=== PATIENT | male | born 1960 | race Two or more races ===

== ENCOUNTER 2019-07-06 20:55 | Emergency (ER) | payer SELFPAY ==
[~2019-07-06] VITALS: Ht 172.7 cm; Wt 72.6 kg
[2019-07-06 21:00] VITALS: BP 129/68
[2019-07-06] MEDS ORDERED: Ipratropium 0.02% Inh Soln 2.5ml UD HHN ONE (21:00)
[2019-07-06] MEDS ORDERED: Solu-MEDROL 125mg Inj IVP ONE (21:00)
[2019-07-06] MEDS ORDERED: Albuterol ud Inhalation HHN ONE (21:00)
--- NOTE | 2019-07-06 21:00 | NUR ---
ED Nurse Note: Patient was biba RA [address] c/o rectal bleed since 4pm. Pt stated he has been bleeding and saturated towels. AAO x4, VSS at this time. Patient presented with strong alcoho smell, talkactive.
--- NOTE | 2019-07-06 21:04 | Emergency Room Report ---
History of Present Illness General Chief Complaint: Gastrointestinal Bleed Source: Patient Present Illness HPI This is a 58-year-old male with a history of COPD but continued to smokes a pack a day. Is also oxygen dependent on 2 L nasal cannula all the time. He presents with chief complaint of rectal bleeding. Onset today. Bleeding is profuse and bright red blood. Never had this problem before. He also has shortness of breath. This is a chronic problem. Was just at [facility] yesterday for the same thing. He is using inhaler nebulizer machine at home. Not helping. Worse with smoking. Worse with exertion. Denies any chest pain. Has cough but productive of phlegm which is at baseline. No fever chills but no nausea no vomiting. No diarrhea. Allergies: Coded Allergies: No Known Allergies (Unverified , 07/06/19) Patient History Past Medical History: see triage record, old chart reviewed, COPD Past Surgical History: other Pertinent Family History: none Social History: Reports: smoking, alcohol use Immunizations: other Reviewed Nursing Documentation: PMH: Agreed; PSxH: Agreed Nursing Documentation-PMH Hx COPD: Yes Review of Systems Eye: Denies: eye pain, blurred vision ENT: Denies: ear pain, nose congestion, throat swelling Respiratory: Reports: cough, shortness of breath Cardiovascular: Denies: chest pain, palpitations Gastrointestinal: Denies: abdominal pain, diarrhea, nausea, vomiting Musculoskeletal: Denies: back pain, joint pain Skin: Denies: rash Neurological: Denies: headache, numbness Endocrine: Denies: increased thirst, increased urine Hematologic/Lymphatic: Denies: easy bruising All Other Systems: negative except mentioned in HPI Physical Exam Vital Signs Date Time Temp Pulse Resp B/P (MAP) Pulse Ox O2 Delivery O2 Flow Rate FiO2 07/06/19 20:43 98.1 78 16 129/68 (88) 90 Vitals with hypoxia Sp02 EP Interpretation: reviewed, normal General Appearance: well appearing, mild distress, Chronically Ill Head: normocephalic, atraumatic Eyes: bilateral eye PERRL, bilateral eye EOMI ENT: hearing grossly normal, normal pharynx Neck: full range of motion, supple, no meningismus Respiratory: chest non-tender, respiratory distress, decreased breath sounds, accessory muscle use, wheezing Cardiovascular #1: regular rate, rhythm, no murmur Gastrointestinal: normal bowel sounds, non tender, no mass, no organomegaly, no bruit, non-distended Rectal: normal rectal tone, other - Bleeding hemorrhoid. No thrombosis. Musculoskeletal: back normal, gait/station normal, normal range of motion Psychiatric: mood/affect normal Medical Decision Making Diagnostic Impression: Primary Impression: COPD with exacerbation Additional Impressions: Rectal bleeding Mass of right lung Alcohol abuse ER Course This patient presents with rectal bleeding. This is probably from a bleeding hemorrhoid. Hemoglobin stable. He also was wheezing and better after breathing treatment. He has a possible infiltrate versus lung mass on the right hilar area. I ordered a CT scan. Patient said that he is an alcoholic and did not want to stay. He had a friend/family member at bedside. He had a small bottle of vodka which he drank most of it. I explained to the patient that he needs to stay for further work-up but he said he wants to go home. He understand the risk of leaving AGAINST MEDICAL ADVICE. EKG Diagnostic Results Rate: normal Rhythm: NSR ST Segments: no acute changes Rhythm Strip Diag. Results EP Interpretation: yes Rate: 96 Rhythm: NSR, no PVC's, no ectopy Chest X-Ray Diagnostic Results Chest X-Ray Diagnostic Results : Chest X-Ray Ordered: Yes # of Views/Limited/Complete: 1 View Indication: Shortness of Breath EP Interpretation: Yes Interpretation: no effusion, no pneumothorax, other - rt hilar mass vs infitrate Impression: Other - rt hilar infiltrate vs mass Electronically Signed by: Kenyon Zamora MD Last Vital Signs Date Time Temp Pulse Resp B/P (MAP) Pulse Ox O2 Delivery O2 Flow Rate FiO2 07/06/19 20:43 98.1 78 16 129/68 (88) 90 Status: improved Disposition: AGAINST MEDICAL ADVICE Condition: Stable Scripts Levofloxacin* (LEVAQUIN*) 500 Mg Tablet 500 MG ORAL DAILY, #7 TAB Prov: Kenyon Zamora MD 07/06/19 Prednisone* (PREDNISONE*) 50 Mg Tablet 50 MG ORAL DAILY, #5 TAB 0 Refills Prov: Kenyon Zamora MD 07/06/19 Additional Instructions: You are signing AGAINST MEDICAL ADVICE. You may suffer severe consequences and even . Stop smoking. Follow-up with your doctor in 2 to 3 days. You have a possible lung mass on the right lung. You will need to scan to rule out possible cancer. Return if symptoms worsen. Kenyon Zamora MD Jul 06, 2019 21:04
--- NOTE | 2019-07-06 21:15 | NUR ---
ED Nurse Note: blood collected sent down
[2019-07-06] MEDS ORDERED: Azithromycin 250mg tab ORAL ONE (21:30)
[2019-07-06] MEDS ORDERED: cefTRIAXone 1 GM in NS 55 ML IVPB ONE (21:30)
[2019-07-06 21:35] LABS: ANION GAP 10 mmol/L (5-15); BLOOD UREA NITROGEN 8 mg/dL (7-18); CALCIUM 8.3 MG/DL (8.5-10.1); CARBON DIOXIDE 27 MMOL/L (21-32); CHLORIDE 108 MMOL/L (98-107); CREATININE 0.8 MG/DL (0.55-1.30); INR 1.1 (0.9-1.1); POTASSIUM 3.9 MMOL/L (3.5-5.1); SODIUM 145 MMOL/L (136-145)
[2019-07-06 21:40] LABS: ALANINE AMINOTRANSFERASE 84 U/L (12-78); ALBUMIN 3.4 G/DL (3.4-5.0); ALKALINE PHOSPHATASE 82 U/L (46-116); ASPARTATE AMINO TRANSFERASE 130 U/L (15-37); BILIRUBIN,TOTAL 0.9 MG/DL (0.2-1.0)
[2019-07-06 21:42] LABS: BASOPHILS % (AUTO) 2.4 % (0.0-2.0); EOSINOPHILS % (AUTO) 0.9 % (0.0-3.0); HEMATOCRIT 45.2 % (42.0-52.0); HEMOGLOBIN 15.1 G/DL (14.2-18.0); LYMPHOCYTES % (AUTO) 24.4 % (20.0-45.0); MEAN CORPUSCULAR VOLUME 94 FL (80-99); MONOCYTES % (AUTO) 10.3 % (1.0-10.0); PLATELET COUNT 109 K/UL (150-450); RED CELL DISTRIBUTION WIDTH 11.8 % (11.6-14.8); WHITE BLOOD COUNT 6.3 K/UL (4.8-10.8)
[2019-07-06] MEDS ORDERED: Omnipaque-300 100ml vial INJ ONE (22:00)
[2019-07-06 22:05] VITALS: BP 129/68
--- NOTE | 2019-07-06 22:05 | NUR ---
AMA: SEE AMA FORM. Patient was foud drinking Vodka at bed side. As soon as RN asked him to give the bottle, he decided to live AMA. Patient was notifyed by Dr. Zamora, that it is dangerous for him do not get medications. Patient AAO x4, VSS at this time.
[2019-07-06] MEDS ORDERED: LEVAQUIN500 MG ORAL (22:06)
[2019-07-06] MEDS ORDERED: PREDNISONE50 MG ORAL (22:06)
--- NOTE | 2019-07-07 14:48 | Diagnostic Imaging Report ---
Indication: Shortness of breath Technique: One view of the chest Comparison: none Findings: There is infiltrate in the right perihilar region. Left lung, bilateral pleural spaces are clear. The heart size is normal. Impression: Right perihilar infiltrate, likely pneumonia
== END 2019-07-06 22:05 | disposition left against medical advice (07) ==
LOC: EDBD 20:55 → EMR 21:25
DX: K62.5 Hemorrhage of anus and rectum (principal); J44.1 Chronic obstructive pulmonary disease with (acute) exacerbation; R91.8 Other nonspecific abnormal finding of lung field; F10.10 Alcohol abuse, uncomplicated; F17.210 Nicotine dependence, cigarettes, uncomplicated; Z99.81 Dependence on supplemental oxygen; Z79.51 Long term (current) use of inhaled steroids
CPT/HCPCS: 36415; 71045; 80053; 83605; 84484; 85025; 85610; 85730; 87040; 93005; 94640; 94664; 99284; J0696; J2930

== ENCOUNTER 2019-07-19 19:45 | Emergency (ER) | payer MEDICAID ==
[~2019-07-19] VITALS: Ht 172.7 cm; Wt 63.5 kg
[~2019-07-19 19:45] MED LIST: LEVAQUIN500 MG ORAL; PREDNISONE50 MG ORAL
[2019-07-19 19:46] VITALS: BP 140/92
--- NOTE | 2019-07-19 19:46 | NUR ---
ED Nurse Note: Patient brought in by RA from street due to lower GI bleed. Patient stated he has bright red blood coming from his rectum. Has medical history of Lower GI bleed, HTN, substance abuse. Alert nad oriented, verbally responsive. Afebrile. No SOB. Breathing even and unlabored. VSS. S/O at bedside.
[2019-07-19] MEDS ORDERED: Omnipaque-300 100ml vial INJ ONE (20:30)
[2019-07-19 20:37] LABS: BASOPHILS % (AUTO) 2.2 % (0.0-2.0); EOSINOPHILS % (AUTO) 0.6 % (0.0-3.0); HEMATOCRIT 36.1 % (42.0-52.0); HEMOGLOBIN 11.6 G/DL (14.2-18.0); MEAN CORPUSCULAR VOLUME 93 FL (80-99); MONOCYTES % (AUTO) 6.9 % (1.0-10.0); NEUTROPHILS % (AUTO) 61.2 % (45.0-75.0); PLATELET COUNT 117 K/UL (150-450); RED BLOOD COUNT 3.88 M/UL (4.70-6.10); RED CELL DISTRIBUTION WIDTH 11.4 % (11.6-14.8); WHITE BLOOD COUNT 4.9 K/UL (4.8-10.8)
[2019-07-19 20:45] LABS: INR 1.1 (0.9-1.1)
[2019-07-19 20:52] LABS: ANION GAP 8 mmol/L (5-15); BLOOD UREA NITROGEN 14 mg/dL (7-18); CALCIUM 8.4 MG/DL (8.5-10.1); CARBON DIOXIDE 27 MMOL/L (21-32); CHLORIDE 110 MMOL/L (98-107); CREATININE 0.8 MG/DL (0.55-1.30); POTASSIUM 3.8 MMOL/L (3.5-5.1); SODIUM 145 MMOL/L (136-145)
[2019-07-19 20:57] LABS: ALANINE AMINOTRANSFERASE 81 U/L (12-78); ALBUMIN 3.2 G/DL (3.4-5.0); ALBUMIN/GLOBULIN RATIO 0.9 (1.0-2.7); ALKALINE PHOSPHATASE 98 U/L (46-116); ASPARTATE AMINO TRANSFERASE 137 U/L (15-37); BILIRUBIN,TOTAL 0.8 MG/DL (0.2-1.0)
--- NOTE | 2019-07-19 21:00 | Emergency Room Report ---
History of Present Illness General Chief Complaint: Gastrointestinal Bleed Source: Patient (Trish Castellanos) Present Illness HPI 58-year-old male presents to the emergency department complaining of gross bright red blood per rectum intermittently x2 weeks. Patient reports episodes of dizziness and near syncope today. Patient reports EtOH dependence and states his last drink was 2 hours prior to arrival he states he was drinking vodka today. Patient denies history of cancer he denies abdominal pain or tenderness. Patient denies black tarry stools he denies nausea vomiting, fevers , chills, night sweats or significant changes in weight. Patient reports history of COPD and states that he has a cough. Patient denies constipation or diarrhea. Reports last bowel movement was earlier today. No other aggravating or relieving factors. Patient denies pain at this time. (Trish Castellanos) Allergies: Coded Allergies: No Known Allergies (Unverified , 07/06/19) Patient History Past Medical History: see triage record Past Surgical History: none Pertinent Family History: none Reviewed Nursing Documentation: PMH: Agreed; PSxH: Agreed (Trish Castellanos) Nursing Documentation-PMH Past Medical History: No History, Except For Hx COPD: Yes (Trish Castellanos) Review of Systems All Other Systems: negative except mentioned in HPI (Trish Castellanos) Physical Exam Vital Signs Date Time Temp Pulse Resp B/P (MAP) Pulse Ox O2 Delivery O2 Flow Rate FiO2 07/19/19 19:33 98.2 102 18 140/92 (108) 98 Room Air Sp02 EP Interpretation: reviewed, normal General Appearance: no apparent distress, alert, GCS 15, non-toxic Head: normocephalic, atraumatic Eyes: bilateral eye normal inspection, bilateral eye PERRL ENT: hearing grossly normal, normal voice Neck: full range of motion Respiratory: chest non-tender, lungs clear, normal breath sounds, no respiratory distress, no accessory muscle use, no wheezing, speaking full sentences Cardiovascular #1: regular rate, rhythm, normal capillary refill Gastrointestinal: normal bowel sounds, non tender, soft, non-distended, no guarding Rectal: heme positive stool - Grossly positive FOB, other - No significant external hemorrhoid noted Genitourinary: normal inspection, no CVA tenderness Musculoskeletal: back normal, gait/station normal, normal range of motion, non- tender Neurologic: alert, oriented x3, responsive, motor strength/tone normal, sensory intact, normal gait, speech normal, grossly normal Psychiatric: judgement/insight normal Skin: normal color, normal inspection, warm/dry, other (Trish Castellanos) Medical Decision Making PA Attestation Dr. Tucker Is my supervising Physician whom patient management has been discussed with. (Trish Castellanos) Diagnostic Impression: Primary Impression: Gastrointestinal hemorrhage Qualified Codes: K92.2 - Gastrointestinal hemorrhage, unspecified Additional Impressions: CAP (community acquired pneumonia) Qualified Codes: J18.1 - Lobar pneumonia, unspecified organism Alcoholism Ascites Qualified Codes: K70.11 - Alcoholic hepatitis with ascites Anemia Qualified Codes: D64.9 - Anemia, unspecified Alcohol intoxication Qualified Codes: F10.920 - Alcohol use, unspecified with intoxication, uncomplicated ER Course 58-year-old male presents to the emergency department complaining of gross bright red blood per rectum intermittently x2 weeks. Patient reports episodes of dizziness and near syncope today. Patient reports EtOH dependence and states his last drink was 2 hours prior to arrival he states he was drinking vodka today. Patient denies history of cancer he denies abdominal pain or tenderness. Patient denies black tarry stools he denies nausea vomiting, fevers , chills, night sweats or significant changes in weight. Patient reports history of COPD and states that he has a cough. Patient denies constipation or diarrhea. Reports last bowel movement was earlier today. No other aggravating or relieving factors. Patient denies pain at this time. Ddx considered but are not limited to anemia, lower GI bleed, EtOH intoxication , neuroid, rectal tear, cancer, EtOH withdrawal just to name a few. Vital signs: are WNL, pt. is afebrile H&PE are most consistent with acute lower GI bleed. -Previous Hgb: 15 ( 2 weeks ago) ORDERS: -CBC: hgb 11.6 -CMP: AST 137 -PT/PTT: ABO : ETOH: 386 CT Chest Abdomen and Pelvis W. Contrast.--Pending at time of sign out ED INTERVENTIONS: None required at this time. DISPOSITION: at this time pt. will be admitted for Acute Lower GI Bleed. Pending accepting Dr. blanco. Pt. is signed out to oncoming ED physician Dr. Zamora. (Trish Castellanos) ER Course Patient signed out to me. He is known to me from last visit where he signed out AMA. He is an alcoholic who presents with cough and rectal bleeding. Since the last visit a couple weeks ago, hemoglobin dropped from 15-11.6. He also continued to cough. Antibiotics started here. No evidence of an acute abdomen. Hemoglobin is stable for transfer versus admit. I discussed case with Dr. Vale who accepted pt for transfer to [facility]. Patient got dressed and now that he wants to leave AM. He said he can go to his mom place who then will drive him to [facility]. He claimed that his sister is a doctor who worked at [employer]. This is same story I got from him last time. Several times here I asked him if he is willing to stay to be transfer and he agreed to stay. Once everything came back now he wants to leave. He is walking around without any difficulty. He has no slurred speech. His female friend is with him. They both want to leave. He will sign out AGAINST MEDICAL ADVICE. Recent benefit explained to the patient. His risks include continued bleeding, severe anemia. He can also lead to the point of dying. He expressed understanding. Will discharge home. Patient said he is not homeless. (Kenyon Zamora MD) CT/MRI/US Diagnostic Results CT/MRI/US Diagnostic Results : Imaging Test Ordered: CT Chest Abdomen and Pelvis W. Contrast. Impression " " Per official radiology report- Please see report for specific details. (Trish Castellanos) CT/MRI/US Diagnostic Results : Imaging Test Ordered: CT chest, abdomen and pelvis Impression Read by radiologist. CT chest show emphysema. Nodular area of consolidation within the right upper lobe. Probably superior aspect of the right middle lobe. Likely inflammatory versus infectious. CT abdomen pelvis showed ascites. (Kenyon Zamora MD) Last Vital Signs Date Time Temp Pulse Resp B/P (MAP) Pulse Ox O2 Delivery O2 Flow Rate FiO2 07/19/19 19:46 98.2 70 18 140/92 98 Room Air (Trish Castellanos) Status: improved (Kenyon Zamora MD) Disposition: AGAINST MEDICAL ADVICE Condition: Stable Trish Castellanos Jul 19, 2019 21:00 Kenyon Zamora MD Jul 19, 2019 23:02
--- NOTE | 2019-07-19 21:10 | NUR ---
ED Nurse Note: Pt taken to CT.
--- NOTE | 2019-07-19 21:33 | NUR ---
ED Nurse Note: Came back from CT.
[2019-07-19 21:36] VITALS: BP 141/77
--- NOTE | 2019-07-19 22:52 | Diagnostic Imaging Report ---
CLINICAL INDICATION: Or GI bleed x2 weeks, history COPD, cough TECHNIQUE: No oral contrast, per emergency room physician request . IV administration nonionic contrast. Multiphasic spiral acquisitions obtained through the chest, abdomen, and pelvis. Multiplanar reconstructions were generated. Total dose length product 1830 mGycm. CTDIvol(s) 98 mGy. Radiation dose was minimized using automated exposure control COMPARISON: none FINDINGS Chest: Exam is somewhat limited as the lung apices are excluded from imaging volume. There is hyperinflation and bullous changes, particularly notable and the upper lobes. Multiple adjacent irregular opacities are seen in the inferior right upper lobe. These extend from the hilum anteriorly to the anterior pleural surface. Some atelectasis or scarring is seen in the inferior lingula and in the lower lobes bilaterally. A calcified granuloma is seen in the right upper lobe. The heart size is normal. There are calcified granulomatous lymph nodes which are nonenlarged. No mediastinal or hilar mass or adenopathy. No axillary or chest wall mass or adenopathy. Unremarkable esophagus. The bones are unremarkable. Abdomen pelvis: Exam is limited, as the upper abdomen is cut off of the exam on the venous phase images. It is included on the arterial phase images of the chest. There is evidence of prior right hemicolectomy and ileocolic anastomosis at the level of the mid transverse colon. Small bowel loops are diffusely mildly prominent and fluid-filled, without discrete transition point. A few of them demonstrate mild wall thickening. There is equivocal mild wall thickening of the distal sigmoid. There is a small amount of free intraperitoneal fluid. No free intraperitoneal gas demonstrated. Evaluation of the liver is incomplete given absence of portion of it from the venous phase exam. It demonstrates a cyst at the posterior periphery of segment IVb.. The gallbladder demonstrates some pericholecystic fluid likely related to the ascites. The pancreas and spleen are likewise incompletely included on the venous phase, are seen on the arterial phase. The spleen demonstrates a calcified granuloma. The adrenals are unremarkable. The right kidney demonstrates a cyst cyst in the interpolar region. There are also bilateral subcentimeter low-attenuation lesions which are too small to characterize. No pelvic mass or adenopathy. No retroperitoneal or mesenteric mass or adenopathy. There are some prominent peripancreatic lymph nodes noted, however. IMPRESSION: Limited exam, as described COPD changes Irregular opacities in the inferior right upper lobe. These may reflect areas of acute inflammation or postinflammatory scarring. Underlying mass lesion as etiology of any these cannot be completely excluded. Equivocal mild small bowel and distal sigmoid wall thickening, if real could indicate colitis/enteritis changes Evidence of old granulomatous disease within the right upper lobe, mediastinal lymph nodes, and spleen Evidence of prior right hemicolectomy and ileocolic anastomosis Small amount of ascites fluid Hepatic and right renal cysts. Bilateral subcentimeter low-attenuation renal lesions which are too small to characterize, most likely benign simple cysts. No further follow-up necessary Nonspecific prominent peripancreatic lymph nodes This essentially agrees with the [facility] preliminary report provided overnight, with some minor variations. The CT scanner at [facility] is accredited by the [employer] and the scans are performed using protocols designed to limit radiation exposure to as low as reasonably achievable to attain images of sufficient resolution adequate for diagnostic evaluation.
[2019-07-19 23:45] VITALS: BP 139/82
[2019-07-20 00:08] VITALS: BP 139/82
--- NOTE | 2019-07-20 00:08 | NUR ---
AMA: Patient refused to be treated nor to be transferred. Explained risk and benefits x3. He stated that he felt better and doesnt want any treatment anymore. Signed AMA form. Addendum: 07/20/19 at 0017 by YENIFER ED Nurse Note: Pt ID abnd and IV line was removed. Pt took all his belongings.
== END 2019-07-20 00:08 | disposition left against medical advice (07) ==
LOC: EDBD 19:45 → EMR 20:05 → EDBEDREQSVC 21:08 → EDBEDREQ 21:09 → EMR 07-20 00:08
DX: K92.2 Gastrointestinal hemorrhage, unspecified (principal); J18.1 Lobar pneumonia, unspecified organism; K70.11 Alcoholic hepatitis with ascites; D64.9 Anemia, unspecified; F10.920 Alcohol use, unspecified with intoxication, uncomplicated; J44.9 Chronic obstructive pulmonary disease, unspecified
CPT/HCPCS: 36415; 71260; 74177; 80053; 85025; 85610; 85730; 86850; 86900; 86901; 96365; G0480; J1956; Q9967; Z7502; 99284